=== PATIENT | male | born 1960 | race Caucasian/White ===

== ENCOUNTER → 2016-10-18 | Outpatient (CLI) | payer BC ==
[~2016-10-18] MED LIST: CLC100 PO; CZR25 PO; INSDGIPEN SQ; INSU32MI13 SQ; NVLGIPEN SC; OXYC-106 PO
[2016-10-18 09:51] LABS: ESTIMATED AVERAGE GLUCOSE 160 mg/dl; HA1C FLAG Normal (Normal)
[2016-10-18 09:53] LABS: CALCIUM 8.6 mg/dl (8.5-10.1)
[2016-10-18 10:02] LABS: CHOLESTEROL/HDL RATIO 1.5
== END | disposition home or self-care (01) ==
LOC: C.LAB 08:15
PROVIDERS: ATTEND Internal Medicine Endocrinology, Diabetes & Metabolism
DX: K76.0 Fatty (change of) liver, not elsewhere classified (principal); Z72.0 Tobacco use; R80.9 Proteinuria, unspecified; F41.9 Anxiety disorder, unspecified; R21 Rash and other nonspecific skin eruption; I10 Essential (primary) hypertension; E22.2 Syndrome of inappropriate secretion of antidiuretic hormone; E11.9 Type 2 diabetes mellitus without complications; E78.5 Hyperlipidemia, unspecified; Z86.39 Personal history of other endocrine, nutritional and metabolic disease

== ENCOUNTER → 2017-01-17 | Outpatient (CLI) | payer BC ==
[2017-01-17 12:17] LABS: ESTIMATED AVERAGE GLUCOSE 171 mg/dl; HA1C FLAG Normal (Normal)
[2017-01-17 12:25] LABS: ALKALINE PHOSPHATASE 84 U/L (45-117); ALT/SGPT 22 U/L (12-78); BLOOD UREA NITROGEN 10 mg/dl (7-18); BUN/CREATININE RATIO 16.7 (10-20); CARBON DIOXIDE 29 mmol/L (21-32); CHLORIDE 93 mmol/L (98-107); CREATININE 0.59 mg/dl (0.60-1.40); GLUCOSE 219 mg/dl (70-99); POTASSIUM 4.3 mmol/L (3.5-5.1); SODIUM 128 mmol/L (136-145)
[2017-01-17 12:36] LABS: ALB/GLOB RATIO 0.9 (0.9-2); AST/SGOT 12 U/L (15-37); MAGNESIUM 2.1 mg/dl (1.8-2.4); THYROID STIMULATING HORMONE 0.674 uIu/ml (0.300-4.500)
[2017-01-17 14:46] LABS: RATIO 501.9 mcg/mg (0-30.0)
== END | disposition home or self-care (01) ==
LOC: C.LAB1850 10:23
PROVIDERS: ATTEND Internal Medicine Endocrinology, Diabetes & Metabolism
DX: K76.0 Fatty (change of) liver, not elsewhere classified (principal); R80.9 Proteinuria, unspecified; E22.2 Syndrome of inappropriate secretion of antidiuretic hormone; E11.3299 Type 2 diabetes mellitus with mild nonproliferative diabetic retinopathy without macular edema, unspecified eye; R20.0 Anesthesia of skin; E11.42 Type 2 diabetes mellitus with diabetic polyneuropathy; E55.9 Vitamin D deficiency, unspecified

== ENCOUNTER → 2017-05-02 | Outpatient (CLI) | payer BC ==
[~2017-05-02] MED LIST changes: -OXYC-106 PO
--- NOTE | 2017-05-02 10:10 | DIAGNOSTIC IMAGING REPORT ---
(CHEST) THORAX WITHOUT CT DOSE: 288.84 mGy.cm CLINICAL HISTORY: 57 years-old Male with R91.1 Lung nodule [id number]. Follow-up study. TECHNIQUE: Multiaxial CT images of the chest were performed without contrast. A dose lowering technique was utilized adhering to the principles of ALARA. COMPARISON: Chest radiograph 08/06/2016, chest CT 08/02/2016. FINDINGS: Thyroid is mildly enlarged without dominant nodule identified. No pathologic adenopathy of the chest is identified. The heart is normal in size with coronary arterial calcifications present. There is atherosclerosis of the aorta. Note is made of a bovine aortic arch. Mild upper lobe predominant centrilobular and paraseptal emphysematous changes are present. No pneumothorax, pleural effusion or focal airspace consolidation. 6 x 4 mm pleural-based noncalcified pulmonary nodule is again seen within the region of the lateral basal segment left lower lobe, unchanged in size and appearance from 08/02/2016. Pleural-based 3 mm noncalcified pulmonary nodule of the anterior segment left upper lobe is noted, likely benign. The central airways are patent. Imaged upper abdominal structures demonstrate no acute abnormality. Soft tissues are unremarkable with symmetric appearing bilateral gynecomastia. Multilevel endplate spurring is seen throughout the thoracic spine with multiple Schmorl's nodes. IMPRESSION: 1. Pleural-based 6 x 4 mm noncalcified pulmonary nodule of the left lower lobe is again seen, unchanged in size and appearance from comparison chest CT 08/02/2016. Follow-up according to the guidelines below recommended. 2. No acute cardiopulmonary process. 3. Mild emphysema. Please refer to below summary of Fleischner criteria recommendations for follow-up of incidental CT nodules (America Dowell, Guidelines for management of small pulmonary nodules detected on CT scans: A statement from the Fleischner Society, Radiology 237: [phone].) SOLID NODULES Solitary nodule size: <6 mm * Low risk patients: no follow-up needed * high risk patients: optional CT at 12 months Solitary nodule size: 6-8 mm * Low risk patients: follow-up at 6-12 months, then consider further follow-up at 18-24 months * high risk patients: initial follow-up CT at 6-12 months and then at 18-24 months if no change Solitary nodule size: >8 mm * either low or high risk patients - consider follow-up CT at 3 months, and/or CT-PET, and/or biopsy Multiple nodules size: <6 mm * Low risk patients: no routine follow-up * high risk patients: optional CT at 12 months Multiple nodules size: 6-8 mm * Low risk patients: follow-up at 3-6 months, then consider further follow-up at 18-24 months * high risk patients: follow-up at 3-6 months, then at 18-24 months if no change Multiple nodules size: >8 mm * Low risk patients: follow-up at 3-6 months, then consider further follow-up at 18-24 months * high risk patients: follow-up at 3-6 months, then at 18-24 months if no change Note: newly detected indeterminate nodule in persons 35 years of age or older. * Low risk patients: minimal or absent history of smoking and/or other known risk factors * high risk patients: history of smoking or of other known risk factors (e.g. first degree relative with lung cancer, or exposure to asbestos, radon, uranium) * if a nodule up to 8 mm is partly solid or is ground glass further follow-up is required after 24 months to exclude possible slow growing adenocarcinoma (ESEQUIEL) The above report was generated using voice recognition software. It may contain grammatical, syntax or spelling errors. Electronically signed by: Juan Oconnell M.D. 05/02/2017 10:09 AM Dictated Date/Time: 05/02/2017 9:56 AM
== END | disposition home or self-care (01) ==
LOC: C.CTS 09:36
PROVIDERS: ATTEND Internal Medicine
DX: R91.1 Solitary pulmonary nodule (principal)

== ENCOUNTER → 2017-05-18 | Outpatient (CLI) | payer BC ==
[2017-05-18 09:56] LABS: ESTIMATED AVERAGE GLUCOSE 154 mg/dl; HA1C FLAG Normal (Normal)
== END | disposition home or self-care (01) ==
LOC: C.LAB 08:22
PROVIDERS: ATTEND Internal Medicine Endocrinology, Diabetes & Metabolism
DX: I10 Essential (primary) hypertension (principal); E11.9 Type 2 diabetes mellitus without complications; E55.9 Vitamin D deficiency, unspecified

== ENCOUNTER → 2017-11-03 | Outpatient (CLI) | payer BC ==
[2017-11-03 11:23] LABS: HEMOGLOBIN A1C 6.8 % (4.5-5.6)
[2017-11-03 11:52] LABS: ALBUMIN 4.2 gm/dl (3.4-5.0); ALKALINE PHOSPHATASE 55 U/L (45-117); ALT/SGPT 69 U/L (12-78); BLOOD UREA NITROGEN 9 mg/dl (7-18); CALCIUM 8.7 mg/dl (8.5-10.1); CARBON DIOXIDE 29 mmol/L (21-32); CHOLESTEROL 180 mg/dl (0-200); CREATININE 0.58 mg/dl (0.60-1.40); GLUCOSE 105 mg/dl (70-99); LDL CHOLESTEROL CALCULATED 63 mg/dl; POTASSIUM 4.5 mmol/L (3.5-5.1); SODIUM 128 mmol/L (136-145)
[2017-11-03 12:03] LABS: AST/SGOT 48 U/L (15-37); TOTAL PROTEIN 7.5 gm/dl (6.4-8.2)
== END | disposition home or self-care (01) ==
LOC: C.LAB 09:15
PROVIDERS: ATTEND Internal Medicine Endocrinology, Diabetes & Metabolism
DX: R80.9 Proteinuria, unspecified (principal); F10.99 Alcohol use, unspecified with unspecified alcohol-induced disorder; E22.2 Syndrome of inappropriate secretion of antidiuretic hormone; E55.9 Vitamin D deficiency, unspecified; E11.9 Type 2 diabetes mellitus without complications

== ENCOUNTER → 2018-01-10 | Outpatient (CLI) | payer BC ==
--- NOTE | 2018-01-10 10:45 | DIAGNOSTIC IMAGING REPORT ---
CT OF THE CHEST WITHOUT IV CONTRAST CLINICAL HISTORY: Lung nodule. COMPARISON STUDY: Chest CTs August 02, 2016 and May 02, 2017. CT DOSE: 344.15 mGycm TECHNIQUE: Axial images of the chest were obtained without IV contrast. Images were reviewed in the axial, sagittal, and coronal planes. IV contrast was not administered for this examination. A dose lowering technique was utilized adhering to the principles of ALARA. FINDINGS: No enlarged axillary, mediastinal or hilar lymph nodes are present. The size of the heart is normal. Mild dilatation of the ascending aorta, measuring 4 cm, is unchanged. There is extensive coronary artery calcification. Mild upper lobe predominant emphysema is present. There is no pneumothorax or pleural effusion. There is no consolidation to suggest pneumonia. A 6 mm subpleural nodule within the lower lobe on image 241 of [address] of August 02, 2016. This is considered benign. No new nodules are present. Old right rib fractures are noted. Upper abdomen is unremarkable on unenhanced exam. IMPRESSION: 1. No change in a 6 mm subpleural nodule since initial chest CT of August 02, 2016. This nodule is considered benign given stability. 2. Mild emphysema. 3. Extensive coronary artery calcification. Electronically signed by: Sterling Cabrera M.D. 01/10/2018 10:44 AM Dictated Date/Time: 01/10/2018 10:34 AM
== END | disposition home or self-care (01) ==
LOC: C.CTS 10:07
PROVIDERS: ATTEND Internal Medicine
DX: J43.9 Emphysema, unspecified (principal); I25.10 Atherosclerotic heart disease of native coronary artery without angina pectoris